=== PATIENT | female | born 1990 | race Hispanic/Latino ===

== ENCOUNTER 2018-03-10 11:44 | Emergency (ER) | payer OTHER ==
[~2018-03-10] VITALS: Ht 160 cm; Wt 63.5 kg
[2018-03-10 12:12] LABS: ABSOLUTE BASOPHIL COUNT 0 /CUMM (0.0-0.2); ABSOLUTE EOSINOPHIL COUNT 0.1 /CUMM (0.0-0.7); ABSOLUTE LYMPH COUNT 2.3 /CUMM (1.2-3.4); ABSOLUTE MONOCYTE COUNT 0.5 /CUMM (0.10-0.60); BASOPHIL % 0.5 % (0.0-2.0); EOSINOPHIL % 0.9 % (0-5); GRANULOCYTE % 62.8 % (42.2-75.2); HEMATOCRIT 37.4 % (37-47); MEAN CORPUSCULAR HGB 24.7 PG (27.0-31.0); MEAN CORPUSCULAR HGB CONC 31.8 G/DL (33.0-37.0); MEAN CORPUSCULAR VOLUME 77.7 FL (81.0-99.0); MEAN PLATELET VOLUME 10.9 FL (7.4-10.4); PLATELET COUNT 201 /CUMM (130-400); RED BLOOD CELL CT 4.81 /CUMM (4.20-5.40); WHITE BLOOD CELL COUNT 7.9 /CUMM (4.8-10.8)
[2018-03-10] MEDS ORDERED: MECLIZINE HCL25 MG PO (13:23)
[2018-03-10] MEDS ORDERED: IBUPROFEN600 M1 PO (13:23)
--- NOTE | 2018-03-10 13:23 | ED AMS/SEIZURE/WEAK/DIZZY ---
History of Present Illness General Chief Complaint: Dizziness Stated Complaint: DIZZY X2 DAYS Source: patient Exam Limitations: no limitations Vital Signs & Intake/Output Vital Signs & Intake/Output Vital Signs Date Time Temp Pulse Resp B/P B/P Pulse O2 O2 Flow FiO2 Mean Ox Delivery Rate 03/10 1345 76 124/84 ED Intake and Output 03/11 0000 03/10 1200 Intake Total 0 Output Total Balance 0 Intake, Oral 0 Patient 140 lb Weight Weight Reported by Patient Measurement Method Allergies Coded Allergies: amoxicillin (Intermediate, HIVES 03/10/18) Reconcile Medications Ibuprofen 600 MG TABLET 1 TAB PO TID PRN PAIN with food Meclizine HCl 25 MG TABLET 1 TAB PO TIDPRN PRN DIZZY Triage Note: TRIAGE: PT TO ER C/C DIZZINESS x 2 DAYS, INTERMITTENT SINCE ONSET, CURRENTLY NOT DIZZY BUT STATES ANY FAST MOVEMENTS WILL BRING IT ON. ALSO HAS HAD HEADACHE X 3-4 DAYS, CURRENTLY RATES 4/10 AND AT WORST 8/10. HAD NAUSEA EARLIER BUT NOT AT PRESENT, -VOMITING. -VISION CHANGES. MANAN NEFF EVALUATING AT TRIAGE. LABS BEING DRAWN BY [facility] RYAN Antunez AT TRIAGE (SST, LAV, BLUE AND COY) Triage Nurses Notes Reviewed? yes Onset: Abrupt Duration: day(s):, changing over time, continues in ED Timing: single episode today Injury Environment: home Severity: moderate, severe Severity Numbers: 7 No Modifying Factors: none : No Patient currently breastfeeds: No HPI: 27-year-old female with no medical history presents for evaluation of episodes of dizziness. Patient reports of the past 2 days she has had dizziness with movements of her head or exertion. She reports some associated nausea but no vomiting. No chest pain or shortness of breath. She also has a mild headache. Patient reports she has had similar symptoms in the past but has never been evaluated for this. She denies any head trauma focal weakness numbness or tingling slurred speech changes in vision abdominal pain palpitations or any other associated symptoms. She is not taking any medicine for this. She is tolerating fluids. (Ignacio Velez) Past History Travel History Traveled to [place] past 21 day No Medical History Any Pertinent Medical History? see below for history Neurological: NONE EENT: NONE Cardiovascular: NONE Respiratory: NONE Gastrointestinal: NONE Hepatic: NONE Renal: NONE Musculoskeletal: NONE Psychiatric: NONE Endocrine: NONE Blood Disorders: NONE Cancer(s): NONE SCOW CAPTAIN/Reproductive: NONE Surgical History Surgical History: non-contributory Psychosocial History What is your primary language [place] Islander Tobacco Use: Never used ETOH Use: occasional use Illicit Drug Use: marijuana Family History Hx Contributory? No (Ignacio Velez) Review of Systems Review of Systems Constitutional: Reports: no symptoms. EENTM: Reports: no symptoms. Respiratory: Reports: no symptoms. Cardiovascular: Reports: no symptoms. GI: Reports: no symptoms. Genitourinary: Reports: no symptoms. Musculoskeletal: Reports: no symptoms. Skin: Reports: no symptoms. Neurological/Psychological: Reports: see HPI, anxiety, headache. Hematologic/Endocrine: Reports: no symptoms. Immunologic/Allergic: Reports: no symptoms. All Other Systems: Reviewed and Negative (Ignacio Velez) Physical Exam Physical Exam General Appearance: well developed/nourished, no apparent distress, alert, awake Head: atraumatic, normal appearance Eyes: Bilateral: normal appearance, PERRL, EOMI. Ears, Nose, Throat: normal pharynx, normal ENT inspection, hearing grossly normal Neck: normal inspection, supple, full range of motion Respiratory: normal breath sounds, chest non-tender, no respiratory distress, lungs clear Cardiovascular: regular rate/rhythm, normal peripheral pulses Peripheral Pulses: 2+ radial (R), 2+ radial (L) Gastrointestinal: soft, non-tender Back: normal inspection, normal range of motion, no vertebral tenderness Extremities: normal range of motion Neurologic/Psych: no motor/sensory deficits, awake, alert, oriented x 3, normal gait, CEREBELLAR FUNCTION INTACT NORMAL ROMBERG Skin: intact, normal color, warm/dry Core Measures ACS in differential dx? No CVA/TIA Diagnosis No Sepsis Present: No Sepsis Focused Exam Completed? No (Ignacio Velez) Progress Differential Diagnosis: arrythmia, anemia, benign positional vertigo, CVA/stroke , dehydration, electrolyte imbalance, hypoglycemia, hypoxia, intracranial Hem., intracranial mass/tumor, migraine BARAKAT, pneumonia, presyncope, post-traumatic vertigo, subarachnoid Hem., UTI/pyelo, vertebrobasilar insuff Plan of Care: Laboratory Tests 03/10/18 1300: Urine Color YEL, Urine Clarity CLEAR, Urine pH 6.5, Ur Specific [place] 1.020, Urine Protein NEG, Urine Ketones 15 H, Urine Nitrite NEG, Urine Bilirubin NEG, Urine Urobilinogen 0.2, Ur Leukocyte Esterase NEG, Ur Microscopic EXAM NOT REQUIRED, Urine Hemoglobin NEG, Urine Glucose NEG, Urine Test NEGATIVE Patient is here for evaluation of dizziness and nausea and headache. She is neurologically intact. Symptoms are only present with movement of the head and resolve at rest. Patient was medicated with ibuprofen and meclizine. Labs EKG ordered. Evaluation is unremarkable. Patient is feeling better after meclizine and ibuprofen. She is tolerating fluids. She is walking with a steady gait. She is neurologically intact. Suspect this is a peripheral vertigo. Patient was instructed to rest drink plenty fluids continue meclizine and ibuprofen as needed follow-up with primary care doctor discussed return precautions patient agrees the plan Initial ED EKG: normal sinus rhythm, no ST T wave changes (Ignacio Velez) Departure Departure Disposition: HOME OR SELF CARE Condition: Stable Clinical Impression Primary Impression: Vertigo Referrals: Patient Has No Primary Care Dr (PCP/Family) Additional Instructions: MAKE A FOLLOW UP APPT WITH [facility]. MECLIZINE AND IBUPROFEN NEEDED. MONITOR YOUR SYMPTOMS RETURN WITH ANY CONCERNS. Departure Forms: Customer Survey General Discharge Information Prescriptions: Current Visit Scripts Meclizine HCl 1 TAB PO TIDPRN PRN DIZZY #30 TAB Ibuprofen 1 TAB PO TID PRN PAIN #30 TAB with food (Ignacio Velez) PA/HANDY WORKER Co-Sign Statement Statement: ED Attending supervision documentation- I saw and evaluated the patient. I have also reviewed all the pertinent lab results and diagnostic results. I agree with the findings and the plan of care as documented in the PA's/HANDY WORKER's documentation. x I have reviewed the ED Record and agree with the PA's/HANDY WORKER's documentation. [] Additions or exceptions (if any) to the PAs/HANDY WORKER's note and plan are summarized below: [] (Manfred BLEVINS,[place])
[2018-03-10 13:45] VITALS: BP 124/84
== END 2018-03-10 13:46 ==
LOC: ERH 11:44
PROVIDERS: Physician Assistant Medical
DX: R42 Dizziness and giddiness (principal); R11.0 Nausea; R51 Headache; F12.10 Cannabis abuse, uncomplicated
CPT/HCPCS: 81003; 81025; 93005; 93010